=== PATIENT | female | born 1975 | race Caucasian/White ===

== ENCOUNTER 2017-05-30 21:24 | Emergency (ER) | payer MEDICAID ==
--- NOTE | 2017-05-30 21:53 | EDPHY ---
H & P Stated Complaint: wants detox from etoh and benzos. sent from [facility] to [facility] to [facility] Time Seen by Provider: 05/30/17 21:52 HPI/ROS: HPI: This is a 41 year old female who presents with Chief Complaint: wants detox from etoh and benzos. sent from [facility] to [facility] to us Location: Quality: Shakiness Duration: Starting today Signs and Symptoms: No fever, no chills, no hallucinations, no suicidal ideation, no homicidal ideation, + dull headache, + tremors, no nausea, no vomiting, no abdominal pain, no diaphoresis, no chest pain Timing: Gradual onset Severity: Moderate Context: Patient complains of nausea with dry heaves, moderate tremors, and dull aching headache starting this afternoon. She stopped drinking yesterday morning at 1100; she had been drinking for 3 weeks straight approximately 2 boxes of wine daily. She had not used alcohol in greater than 10 years prior to this recent relapse. She is prescribed by Dr. tang from the [facility] clonazepam 1 mg p.r.n. daily for anxiety. She states that she normally does not take every day but has not had it in 3 days. She denies wanting to hurt herself or others. She denies hearing voices or seeing things that are not there. She is not paranoid. Modifying Factors: None Comment: ROS: See HPI Constitutional: No fever, no chills, no weight loss Eyes: No blurred vision Respiratory: No shortness of breath, no cough Cardiovascular: No chest pain Gastrointestinal: No nausea, no vomiting no diarrhea Genitourinary: No dysuria Extremities: No myalgias Neurologic: No weakness, no numbness Skin: No rashes Hematologic: No bruising, no bleeding MEDICAL/SURGICAL/SOCIAL HISTORY: Medical history: Depression, anxiety, migraine headaches Surgical history: Denies Social history: Has 2 children CONSTITUTIONAL: Cooperative, calm adult white female, awake and alert, no obvious distress HEENT: Atraumatic and normocephalic, PERRL, EOMI. Tympanic membranes clear. Oropharynx clear, no exudate and moist pink mucosa. Airway patent. No lymphadenopathy. No meningismus. Cardiovascular: Normal S1/S2, regular rate, regular rhythm, without murmur rub or gallop. PULMONARY/CHEST: Symmetrical and nontender. Clear to auscultation bilaterally. Good air movement. No accessory muscle usage. ABDOMEN: Soft, nondistended, nontender, no rebound, no guarding, no peritoneal signs, no masses or organomegaly. No CVAT. EXTREMITIES: 2/2 pulses, no deformities, no clubbing, no cyanosis or edema. NEUROLOGICAL: no focal neuro deficits. GCS 15. SKIN: Warm and dry, no erythema. no rash. Good capillary refill. Source: Patient - Personal History LMP (Females 10-55): 15-21 Days Ago Current Tetanus/Diphtheria Vaccine: Yes Current Tetanus Diphtheria and Acellular Pertussis (TDAP): Yes - Medical/Surgical History Hx Asthma: No Hx Chronic Respiratory Disease: No Hx Diabetes: No Hx Cardiac Disease: No Hx Renal Disease: No Hx Cirrhosis: No Hx Alcoholism: Yes Hx HIV/AIDS: No Hx Splenectomy or Spleen Trauma: No Other PMH: hyporhyroid, IBS, etoh abuse, anxiety and panic attacks - Social History Smoking Status: Never smoked Constitutional: Initial Vital Signs Temperature (C) 37.3 C 05/30/17 21:29 Heart Rate 72 05/30/17 21:29 Respiratory Rate 18 05/30/17 21:29 Blood Pressure 126/84 H 05/30/17 21:29 O2 Sat (%) 97 05/30/17 21:29 O2 Delivery Mode Room Air Allergies/Adverse Reactions: No Known Allergies Allergy (Unverified 05/30/17 21:34) Home Medications: Medication Instructions Recorded Escitalopram Oxalate [Lexapro] 40 mg PO DAILY 05/30/17 Levothyroxine [Synthroid 50 mcg 50 mcg PO DAILY06 05/30/17 (*)] Propranolol Sr [Inderal LA 60mg 60 mg PO DAILY 05/30/17 (*)] clonAZEPAM [Klonopin] 1 mg PO 05/30/17 clonazePAM [klonoPIN (*)] 1 mg PO DAILY PRN #6 tab 05/30/17 lamOTRIGine [Lamotrigine] 125 mg PO DAILY 05/30/17 Medical Decision Making ED Course/Re-evaluation: Labs, urinalysis originally ordered for medical clearance but not obtained as reviewed labs and urine drug screen at [facility] obtained earlier in the day. CIWA: 17 Given 1 L normal saline, IV Ativan 1 mg, PO Librium 25 mg Patient does not meet Detainer or M1 hold criteria; she does not have psychosis/ suicidal ideation/homicidal ideation/delirium Patient will be discharged directly to the [facility] with Librium prepack and a few pills of clonazepam repeat CIWA at discharge: 5 Differential Diagnosis: Differential includes electrolyte abnormality, alcohol withdrawal, medication noncompliance, head injury, and breakthrough seizure. - Data Points Medications Given: Discontinued Medications Chlordiazepoxide (Librium 25 Mg Prepack#6) 1 btl TAKEHOME EDNOW ONE Stop: 05/30/17 22:08 Last Admin: 05/30/17 22:19 Dose: 1 btl Departure - Departure Disposition: Other Psych, Not [place] Clinical Impression: Alcohol abuse Benzodiazepine withdrawal Qualifiers: Complication of substance-induced condition: uncomplicated Qualified Code(s): F13.230 - Sedative, hypnotic or anxiolytic dependence with withdrawal, uncomplicated Alcohol withdrawal Qualifiers: Complication of substance-induced condition: uncomplicated Qualified Code(s): F10.230 - Alcohol dependence with withdrawal, uncomplicated Condition: Fair Instructions: Benzodiazepine Abuse (ED), Abuse of Alcohol (ED) Additional Instructions: Please go directly to the [facility] for further care. Referrals: [facility] [Outside] - As per Instructions Prescriptions: clonazePAM [klonoPIN (*)] 1 mg PO DAILY PRN #6 tab PRN Reason: Anxiety
[2017-05-30] MEDS ORDERED: NS 1,000 ML IV ONE (22:06)
[2017-05-30] MEDS ORDERED: LORazepam 2 MG/ML INJ IVP ONE (22:07)
[2017-05-30] MEDS ORDERED: CHLORDIAZEPOXIDE 25MG PREPK#6 BTL TAKEHOME ONE (22:07)
[2017-05-31] MEDS ORDERED: chlordiazePOXIDE 25 MG CAP PO ONE (00:13)
[2017-05-31 00:44] VITALS: BP 111/74; PULSE 74; RESP 16; TEMP 97.9; O2SAT 96
== END 2017-05-31 00:44 ==
DX: F13.230 Sedative, hypnotic or anxiolytic dependence with withdrawal, uncomplicated (principal); F10.230 Alcohol dependence with withdrawal, uncomplicated
CPT/HCPCS: J2060